=== PATIENT | female | born 1955 | race Caucasian/White ===

== ENCOUNTER → 2016-05-13 | Outpatient (CLI) | payer BC ==
--- NOTE | 2016-05-13 09:45 | MM ---
Reason for exam: history of breast cancer, mastectomy. Last mammogram was performed 1 year ago. History: Patient is postmenopausal and has history of breast cancer at age 51. Family history of breast cancer in maternal aunt at age 77, breast cancer in maternal cousin at age 35, and breast cancer in maternal cousin at age 42. Malignant mastectomy of the right breast, November 18, 2006. Malignant US right core biopsy of the right breast, November 07, 2006. Chemotherapy, 2006. Radiation therapy, 2006. Took tamoxifen for 5 years beginning at age 52. Physical Findings: Nurse did not find any significant physical abnormalities on exam. MG Diagnostic Mammo LT w CAD CC and MLO view(s) were taken of the left breast. Prior study comparison: May 07, 2015, left breast MG 3d diag mammo w/cad LT. April 23, 2014, left breast MG diagnostic mammo LT w CAD. Finding: There are stable, fine, regional calcifications in the left breast. No significant changes in finding since May 07, 2015 and April 23, 2014. These results were verbally communicated with the patient and result sheet given to the patient on 05/13/16. ASSESSMENT: Benign, BI-RAD 2 RECOMMENDATION: Routine screening mammogram of the left breast in 1 year.
== END | disposition home or self-care (01) ==
LOC: RADMAMWWP 08:47
PROVIDERS: ATTEND Family Medicine
DX: C50.919 Malignant neoplasm of unspecified site of unspecified female breast (principal)

== ENCOUNTER → 2016-09-21 | Outpatient (CLI) | payer BC ==
--- NOTE | 2016-09-21 11:16 | BD ---
EXAMINATION TYPE: MG DEXA axial skeleton. DATE OF EXAM: 09/21/2016 COMPARISON: NONE CLINICAL HISTORY: 61-year-old female special screening for osteoporosis Height: 60 Weight: 166.2 FRAX RISK QUESTIONS: Alcohol (3 or more units per day): no Family History (Parent hip fracture): no Glucocorticoids (More than 3mos): no (Ex: prednisone, prednisolone, methylprednisolone, dexamethasone, and hydrocortisone). History of Fracture in Adulthood: no Secondary Osteoporosis: 1. Type 1 Diabetes: no 2. Hyperthyroidism: no 3. Menopause before 45: no 4. Malnutrition: no 5. Chronic liver disease: no Rheumatoid Arthritis: no Current Tobacco Use: no RISK FACTORS HISTORY OF: Hip Fracture (Right/Left): no Spine Fracture: no History of Wrist Fracture: no Surgery to Spine/Hip(right/left)/Wrist (right/left): no Family History of Osteoporosis: no Active: yes Diet low in dairy products/other sources of calcium: no Postmenopausal woman: age 51/ chemo induced Lost more than 2 inches in height since high school: no Frequent falls: no Poor Health: no Hyperparathyroidism: no Adrenal Insufficiency: no MEDICATIONS: blood pressure med and cholesterol med Additional History: breast cancer at age 51 EXAM MEASUREMENTS: Bone mineral densitometry was performed using the incred[employer] System. Bone mineral density as measured about the Lumbar spine is: ----- L1-L4(G/cm2): 1.178 T Score Values are as follows: ----- L2: -0.3 ----- L3: 0.7 ----- L4: -1.1 ----- L1-L4: 0.0 Bone mineral density has: decreased -8.4 % since study of: 08.18.2007 Bone mineral density about the R hip (g/cm2): 0.966 Bone mineral density about the L hip (g/cm2): 0.966 T Score values are as follows: -----R Neck: -0.5 -----L Neck: -0.5 -----R Total: 0.0 -----L Total: 0.4 Bone mineral density has: decreased -11.9 % since study of: 08.18.2007 IMPRESSION: Normal bone mineral density as measured in the lumbar spine and both hips. Consider repeating this st udy in 5 years or sooner if there is some new clinical indication. NOTE: T-SCORE=SD OF THE YOUNG ADULT MEAN.
== END | disposition home or self-care (01) ==
LOC: RADBDWWP 10:11
PROVIDERS: ATTEND Family Medicine
DX: Z13.820 Encounter for screening for osteoporosis (principal)
CPT/HCPCS: 77080

== ENCOUNTER → 2017-05-30 | Outpatient (CLI) | payer BC ==
--- NOTE | 2017-05-31 11:41 | MM ---
Reason for exam: screening (asymptomatic). Last mammogram was performed 1 year and 1 month ago. History: Patient is postmenopausal and has history of breast cancer at age 51. Family history of breast cancer in maternal aunt at age 77, breast cancer in maternal cousin at age 35, and breast cancer in maternal cousin at age 42. Malignant mastectomy of the right breast, November 18, 2006. Malignant US right core biopsy of the right breast, November 07, 2006. Chemotherapy, 2006. Radiation therapy, 2006. Took tamoxifen for 5 years beginning at age 52. Physical Findings: A clinical breast exam by your physician is recommended on an annual basis and results should be correlated with mammographic findings. MG 3D Scr Rosemary Unilateral W/Cad Bilateral CC and MLO view(s) were taken. Prior study comparison: May 13, 2016, left breast MG diagnostic mammo LT w CAD. May 07, 2015, left breast MG 3d diag mammo w/cad LT. The breast tissue is heterogeneously dense. This may lower the sensitivity of mammography. Finding: There are suspicious nolvia-like calcifications in the 9 o'clock position of the left breast retroglandular, 6-7cm from the nipple on MLO view, questionable vascular. ASSESSMENT: Incomplete: need additional imaging evaluation, BI-RAD 0 RECOMMENDATION: Special view mammogram and ultrasound of the left breast. [facility] will attempt to contact patient to return for supplemental views and ultrasound.
== END | disposition home or self-care (01) ==
LOC: RADMAMWWP 09:54
PROVIDERS: ATTEND Family Medicine
DX: Z12.31 Encounter for screening mammogram for malignant neoplasm of breast (principal)
CPT/HCPCS: 77067

== ENCOUNTER → 2017-06-01 | Outpatient (CLI) | payer BC ==
--- NOTE | 2017-06-01 10:57 | MM ---
Reason for exam: additional evaluation requested from abnormal screening. Last mammogram was performed less than 1 month ago. History: Patient is postmenopausal and has history of breast cancer at age 51. Family history of breast cancer in maternal aunt at age 77, breast cancer in maternal cousin at age 35, and breast cancer in maternal cousin at age 42. Malignant mastectomy of the right breast, November 18, 2006. Malignant US right core biopsy of the right breast, November 07, 2006. Chemotherapy, 2006. Radiation therapy, 2006. Took tamoxifen for 5 years beginning at age 52. Physical Findings: Nurse did not find any significant physical abnormalities on exam. MG Work Up Mamm w CAD LT CC with magnification, ML with magnification, and ML view(s) were taken of the left breast. Prior study comparison: May 30, 2017, bilateral MG 3d scr bernadette unilateral w/cad. May 13, 2016, left breast MG diagnostic mammo LT w CAD. Finding: There are faint, fine, segmental calcifications in the outer quadrant, posterior position of the left breast 4 cm from the nipple on ML view. New finding since May 30, 2017 and May 13, 2016. These results were verbally communicated with the patient and result sheet given to the patient on 06/01/17. ASSESSMENT: Probably benign, BI-RAD 3 RECOMMENDATION: Follow-up diagnostic mammogram of the left breast in 6 months. (with CC, MLO and Mag views)
--- NOTE | 2017-06-01 10:59 | USB ---
Reason for exam: additional evaluation requested from abnormal screening. History: Patient is postmenopausal and has history of breast cancer at age 51. Family history of breast cancer in maternal aunt at age 77, breast cancer in maternal cousin at age 35, and breast cancer in maternal cousin at age 42. Malignant mastectomy of the right breast, November 18, 2006. Malignant US right core biopsy of the right breast, November 07, 2006. Chemotherapy, 2006. Radiation therapy, 2006. Took tamoxifen for 5 years beginning at age 52. US Breast Workup Limited LT Left breast ultrasound demonstrates no cystic or solid lesion seen. These results were verbally communicated with the patient and result sheet given to the patient on 06/01/17. ASSESSMENT: Negative, BI-RAD 1 RECOMMENDATION: Follow-up diagnostic mammogram of the left breast in 6 months. Manage patient on a clinical basis.
== END | disposition home or self-care (01) ==
LOC: RADMAMWWP 09:22
PROVIDERS: ATTEND Family Medicine
DX: R92.8 Other abnormal and inconclusive findings on diagnostic imaging of breast (principal)
CPT/HCPCS: 77065

== ENCOUNTER → 2018-01-03 | Outpatient (CLI) | payer BC ==
--- NOTE | 2018-01-03 11:06 | MM ---
Reason for exam: follow-up at short interval from prior study. Last mammogram was performed 7 months ago. History: Patient is postmenopausal and has history of breast cancer at age 51. Family history of breast cancer in maternal aunt at age 77, breast cancer in maternal cousin at age 35, breast cancer in sister at age 70, and breast cancer in maternal cousin at age 42. Malignant mastectomy of the right breast, November 18, 2006. Malignant US right core biopsy of the right breast, November 07, 2006. Chemotherapy, 2006. Radiation therapy, 2006. Took tamoxifen for 5 years beginning at age 52. Physical Findings: Nurse did not find any significant physical abnormalities on exam. MG 3D Diag Mammo W/Cad LT CC and MLO view(s) were taken of the left breast. Prior study comparison: June 01, 2017, left breast MG work up mamm w CAD LT. May 30, 2017, bilateral MG 3d scr bernadette unilateral w/cad. The breast tissue is heterogeneously dense. This may lower the sensitivity of mammography. Finding: There are typically benign vascular, dystrophic, round calcifications in the left breast. There is no discrete abnormality. These results were verbally communicated with the patient and result sheet given to the patient on 01/03/18. ASSESSMENT: Benign, BI-RAD 2 RECOMMENDATION: Follow-up diagnostic mammogram of the left breast in 1 year.
== END | disposition home or self-care (01) ==
LOC: RADMAMWWP 09:58
PROVIDERS: ATTEND Family Medicine
DX: R92.8 Other abnormal and inconclusive findings on diagnostic imaging of breast (principal)
CPT/HCPCS: 77061; 77065

== ENCOUNTER → 2018-03-15 | Outpatient (CLI) | payer BC ==
--- NOTE | 2018-03-15 15:28 | NM ---
EXAMINATION TYPE: NM bone scan whole body DATE OF EXAM: 03/15/2018 COMPARISON: CT chest, abdomen, and pelvis of the same date. HISTORY: Remote history of breast cancer. Abnormal finding in MRI of the knee Delayed whole-body scanning was performed following the injection of 23.7 mCi Tc 99m MDP. Images acq uired 3 hours post injection. FINDINGS: Numerous abnormal foci of radiotracer uptake are seen within the axial and appendicular skeleton. The most avid area of radiotracer uptake is seen within the right knee and left shoulder as well as the left calvarium. Other abnormal foci of radiotracer uptake are seen within the right proximal femur, l eft femoral head, bilateral sacroiliac joints (left greater than right), approximately the eighth ant erior left rib and seventh anterior right., Approximately the sixth posterior right rib, L2, T8, C2 a nd bilateral anterior iliac bones. However when correlated with the CT on the mild sclerosis is seen of the humeral heads and few areas of lucency within the pelvis. Therefore findings are cortical for either Paget's disease or multifocal metastasis. IMPRESSION: Abnormal multifocal osseous uptake. Considerations are for Paget's disease versus multifocal metastas is. CT brain could assess the calvarial finding, otherwise bone biopsy could be performed.
--- NOTE | 2018-03-16 08:07 | CT ---
EXAMINATION TYPE: CT ChestAbdPelvis w con DATE OF EXAM: 03/15/2018 COMPARISON: NONE HISTORY: New found bone mets. Metastatic disease, history of breast CA. CT DLP: 1388 mGycm. Automated Exposure Control for Dose Reduction was Utilized. CONTRAST: CT scan of the thorax, abdomen and pelvis is performed with IV Contrast, patient injected with 100 mL of Isovue 300. FINDINGS: LUNGS: There is a left 1.3 cm solid pulmonary nodule in the upper lobe on series 4 image 15. There ar e 5 groundglass sub-4 mm pulmonary nodules within the right upper lobe near the interlobar fissure on series 4 image 26 that are vaguely seen there is a medial right lower lobe 7 mm solid pulmonary nodu le. Along the left hemidiaphragm there is a 6 mm solid pulmonary nodule. No focal consolidation, pleu ral effusion or pneumothorax. MEDIASTINUM: Mediastinal adenopathy is seen within the prevascular space with lymph node measuring 1. 1 cm in short axis, within the left perihilar region measuring 1.4 cm in short axis, and within the l eft supraclavicular region there is a prominent lymph node measuring 6 mm in short axis. Right mastec zackary is performed and only shotty nonenlarged left axillary lymph nodes are seen. No internal mammary adenopathy is appreciated. LIVER/GB: Hepatic parenchyma is diffusely hypoattenuated in comparison to that of the spleen, most co mmonly seen in hepatic steatosis. This finding limits evaluation for hepatic masses. No gross evidenc e of hepatic mass is seen. No intrahepatic biliary ductal dilatation. Gallbladder is surgically absen t. PANCREAS: No significant abnormality is seen. SPLEEN: No significant abnormality is seen. No splenomegaly. ADRENALS: No nodules or thickening. KIDNEYS: Kidneys enhance symmetrically without hydronephrosis or focal renal lesion appreciated. BOWEL: There is long segment bowel wall thickening of the sigmoid colon without inflammatory change. This could relate to sequela of chronic colitis, less likely long segment neoplasm, or colonic spasm. Terminal ileum is decompressed. Appendix is also decompressed and within normal limits of size. GENITAL ORGANS: Uterus is diffusely heterogenous suggestive of multiple hypoattenuated uterine leiomy omas predominantly within the fundus as well as motor uterine segment calcified degenerative uterine leiomyomas. LYMPH NODES: No greater than 1cm abdominal or pelvic lymph nodes are appreciated. OSSEOUS STRUCTURES: There is sclerosis of the humeral heads, left greater than right. Subtle areas of lucency are seen within the thoracic spine such as on series 4 image 13 that could relate to osseous demineralization or early lytic lesions. There are few punctate bone islands within the femoral head s no discrete osseous lesion is seen within the left femoral head or proximal right femur to correlat e with the bone scan. There are subtle heterogenous bone marrow although no focal lesion is seen with in the pelvis. OTHER: Abdominal aorta is of normal course and caliber with moderate to severe atherosclerosis of the infrarenal abdominal aorta. IMPRESSION: 1. Left upper lobe pulmonary nodule and multiple subcentimeter right lower lobe pulmonary nodules as well as mediastinal adenopathy. Findings could represent metastatic disease or primary pulmonary neop lasm given this patient's discussed remote history of treated breast cancer. 2. Osseous findings are not definitively petroleum products sales representative of metastasis given CT characteristics. When correlated with the bone scan findings may represent multifocal metastasis or possible Paget's diseas e. 3. Sigmoid long segment bowel wall thickening that may be sequela of chronic colitis, colonic spasm o r less likely colonic neoplasm. Correlate with any recent colonoscopy. Given the various findings as described above PET/CT could assess all findings including any avid sigmoid colonic uptake.
== END | disposition home or self-care (01) ==
LOC: RADNMMAIN 09:37
PROVIDERS: ATTEND Internal Medicine Hematology & Oncology
DX: R93.7 Abnormal findings on diagnostic imaging of other parts of musculoskeletal system (principal); R91.8 Other nonspecific abnormal finding of lung field; R93.3 Abnormal findings on diagnostic imaging of other parts of digestive tract; Z88.2 Allergy status to sulfonamides; Z88.1 Allergy status to other antibiotic agents
CPT/HCPCS: 71260; 74177; 36415; 78306; A9503; Q9967

== ENCOUNTER → 2018-10-06 | Outpatient (CLI) | payer BC ==
--- NOTE | 2018-10-06 13:37 | CT ---
EXAMINATION TYPE: CT ChestAbdPelvis w con DATE OF EXAM: 10/06/2018 COMPARISON: CT chest abdomen and pelvis March 15, 2018 HISTORY: Breast cancer follow up. History of right-sided mastectomy with chemotherapy and radiation t reatment into this year. CT DLP: 807.6 mGycm. Automated Exposure Control for Dose Reduction was Utilized. CONTRAST: CT scan of the thorax, abdomen and pelvis is performed with IV Contrast, patient injected with 100 mL of Isovue 300. FINDINGS: LUNGS: The left upper lobe nodule measures 7 x 5 mm diminished in size from prior study. Small ground glass nodules in the right lung fissure mid lung axial image 28 are less prominent on current study, tiny groundglass nodule noted axial image 28 less prominent from prior. Left basilar nodule near the diaphragm less well seen on current study. No new nodules or masses. No pleural effusion or pneumotho rax. MEDIASTINUM: There is improved thoracic adenopathy. Prevascular lymph node measures 8 x 8 mm current study axial image 18 improved from prior study. Improved left hilar adenopathy is noted. No new grea ter than 1 cm thoracic lymph nodes are seen. No cardiomegaly or pericardial effusion is seen. Mild-to -moderate coronary artery calcification is noted marker of underlying coronary artery disease. Ascend ing aorta is ectatic up to 3.8 cm image 22 and not significantly changed from prior. OTHER: Right breast is surgically absent similar to prior. LIVER/GB: Cholecystectomy clips are redemonstrated. Liver remains low dense consistent with fatty inf iltration. PANCREAS: No significant abnormality is seen. SPLEEN: There is 9 mm rim calcified splenic artery aneurysm axial image 56 unchanged from prior. ADRENALS: No significant abnormality is seen. KIDNEYS: No significant abnormality is seen. BOWEL: Oral contrast reaches right colon. No suspicious bowel dilatation GENITAL ORGANS: Anteverted uterus. Calcified right inferior fibroid axial image 97 redemonstrated LYMPH NODES: No greater than 1cm abdominal or pelvic lymph nodes are appreciated. OSSEOUS STRUCTURES: Osseous metastatic disease is felt present as there is no rim lucent right superi or acetabular lesion axial image 61, there is vague sclerotic lesion right proximal femur near inferi or intertrochanteric level coronal image 57. There is no destructive lytic lesion left pubic symphysi s with some adjacent sclerosis. There is vague lytic and sclerotic lesion left iliac bone extending t o superior acetabulum coronal image 60 there is no sclerotic lesion left T12 pedicle axial image 47 a nd sclerotic lesion anterior T7 vertebra sagittal image 65 OTHER: No significant additional abnormality is seen. IMPRESSION: Overall mixed response, Interval improvement in left upper lobe nodule and thoracic adeno mita but interval confirmation and progression of osseous metastatic disease.
== END | disposition home or self-care (01) ==
LOC: RADCTMAIN 08:45
PROVIDERS: ATTEND Internal Medicine Hematology & Oncology
DX: C79.51 Secondary malignant neoplasm of bone (principal); C50.919 Malignant neoplasm of unspecified site of unspecified female breast; R91.1 Solitary pulmonary nodule; R59.9 Enlarged lymph nodes, unspecified
CPT/HCPCS: 82565; 84520; 71260; 74177; 36415; Q9967

== ENCOUNTER → 2019-01-02 | Outpatient (CLI) | payer BC ==
[2019-01-02 10:50] LABS: African American GFR (CKD) >90 (>60 ml/min/1.73 sqM); Blood Urea Nitrogen 16 mg/dL (7-17)
--- NOTE | 2019-01-02 15:31 | CT ---
EXAMINATION TYPE: CT ChestAbdPelvis w con DATE OF EXAM: 01/02/2019 COMPARISON: 10/06/2018 and 03/15/2018 HISTORY: 63-year-old female Follow up breast CA TECHNIQUE: Contiguous axial scanning of the chest, abdomen, and pelvis performed with IV Contrast, pa tient injected with 100 mL of Isovue 300. Delayed images through the kidneys were obtained. Coronal/s agittal reconstructions performed. CT DLP: 703.5 mGycm Automated exposure control for dose reduction was used. FINDINGS: CHEST: Heart normal size without pericardial effusion. Scattered coronary vessel calcifications are present. Ectatic ascending aorta and 3.8 cm with conventional vessel branching anatomy. No thoracic lymphadenopathy by CT size criteria. Status post right mastectomy. 7 mm left upper lobe pulmonary nodule is stable from 10/06/2018 and smaller from 03/15/2018. 4 mm nodularity medial right lower lobe on axial image 37 and 38 unchanged from 10/06/2018, but again, smaller from 03/15/2013. No new pulmonary nodules. No consolidation or pleural effusion. ABDOMEN: Liver mildly enlarged at 18.1 cm with low-attenuation suggesting fatty infiltration. No focal liver l esion or biliary ductal dilatation. Portal venous system is patent. Cholecystectomy clips. Adrenal glands, kidneys with bilateral extrarenal pelves, and pancreas appear within normal limits. Spleen borderline enlarged at 13.4 cm. No dilated small bowel, free fluid, or free air. Moderate atherosclerotic calcifications infrarenal abdominal aorta without aneurysm. No mesenteric or retroperitoneal lymphadenopathy. Moderate stool burden. No pericolonic inflammatory change. Normal appendix. Pelvis: Bladder is urine distended. Anteverted fibroid uterus with a calcified 2.5 cm fibroid along the anter ior lower uterine segment. Both ovaries are visualized. No abnormal fluid collection in the pelvis or pelvic lymphadenopathy. Bones: Multifocal mixed sclerotic and lucent lesions throughout skeleton. Facet arthropathy lower lumbar spi ne with grade 1 anterolisthesis at L5-S1. IMPRESSION: 1. STATUS POST RIGHT MASTECTOMY. 2. 7 MM LEFT UPPER LOBE PULMONARY NODULE AND 4 MM AND SMALLER MEDIAL RIGHT LOWER LOBE PULMONARY NODUL ARITY STABLE FROM 10/06/2018 BUT NOTED TO BE SMALLER FROM 03/15/2018. 3. DIFFUSE MIXED SCLEROTIC AND LUCENT OSSEOUS METASTASES REDEMONSTRATED. 4. NO NEW METASTATIC DISEASE IDENTIFIED.
--- NOTE | 2019-01-03 04:22 | NM ---
EXAMINATION TYPE: NM bone scan whole body DATE OF EXAM: 01/02/2019 COMPARISON: 03/15/[address] same day HISTORY: 63-year-old female C50.919, breast cancer. Technique: Delayed whole-body scanning was performed following the injection of 23 mCi Tc 99m MDP. I mages acquired 3 hours post injection. FINDINGS: Focal increased activity along the left calvarium, left humeral head, foci at the right shoulder, rig ht anterior fourth rib, left anterior sixth rib, left sacrum, patchy throughout the mid thoracic spin e, proximal femora, and right knee. Some focal activity along the medial compartment of the left knee likely on a degenerative basis. No new focal abnormal activity is identified. IMPRESSION: Generalized osseous metastatic disease, relatively similar distribution as prior. Note, intense focal activity at the right knee. Given right knee pain, consider radiographic correlation.
== END ==
LOC: RADNMMAIN 09:53
PROVIDERS: ATTEND Internal Medicine Hematology & Oncology
DX: C79.51 Secondary malignant neoplasm of bone (principal); C50.919 Malignant neoplasm of unspecified site of unspecified female breast; M25.561 Pain in right knee; Z90.11 Acquired absence of right breast and nipple; R91.1 Solitary pulmonary nodule
CPT/HCPCS: 82565; 84520; 71260; 74177; 36415; 78306; A9503; Q9967

== ENCOUNTER → 2019-01-17 | Outpatient (CLI) | payer BC ==
--- NOTE | 2019-01-17 09:21 | MM ---
Reason for exam: additional evaluation requested from prior study. Last mammogram was performed 1 year ago. History: Patient is postmenopausal, has history of breast cancer at age 51, and history of other cancer. Family history of breast cancer in maternal aunt at age 77, breast cancer in maternal cousin at age 35, breast cancer in sister at age 70, and breast cancer in maternal cousin at age 42. Malignant mastectomy of the right breast, November 18, 2006. Malignant US right core biopsy of the right breast, November 07, 2006. Chemotherapy, 2006. Radiation therapy, 2006. Took tamoxifen for 5 years beginning at age 52. Physical Findings: Nurse did not find any significant physical abnormalities on exam. MG 3D Diag Mammo W/Cad LT CC and MLO view(s) were taken of the left breast. Prior study comparison: January 03, 2018, left breast MG 3d diag mammo w/cad LT. June 01, 2017, left breast MG work up mamm w CAD LT. The breast tissue is heterogeneously dense. This may lower the sensitivity of mammography. No significant new findings when compared with previous films. These results were verbally communicated with the patient and result sheet given to the patient on 01/17/19. ASSESSMENT: Benign, BI-RAD 2 RECOMMENDATION: Follow-up diagnostic mammogram of the left breast in 1 year.
== END | disposition home or self-care (01) ==
LOC: RADMAMWWP 07:46
PROVIDERS: ATTEND Family Medicine
DX: R92.8 Other abnormal and inconclusive findings on diagnostic imaging of breast (principal)
CPT/HCPCS: 77061; 77065

== ENCOUNTER → 2019-03-19 | Outpatient (CLI) | payer BC ==
[2019-03-19 08:58] LABS: Basophils % (A) 1 %; Eosinophils # (A) 0.1 k/uL (0-0.7); Eosinophils % (A) 3 %; HCT 42.3 % (34.0-46.0); HGB 14.5 gm/dL (11.4-16.0); Lymphocytes # (A) 0.8 k/uL (1.0-4.8); Lymphocytes % (A) 27 %; MCH 34.7 pg (25.0-35.0); MCHC 34.2 g/dL (31.0-37.0); MCV 101.5 fL (80.0-100.0); Macrocytosis Slight; Mean Platelet Volume 7.2; Monocytes # (A) 0.1 k/uL (0-1.0); Monocytes % (A) 2 %; Neutrophils % (A) 65 %; Platelet Count 267 k/uL (150-450); Poikilocytosis Slight; RBC 4.17 m/uL (3.80-5.40); RDW 13.9 % (11.5-15.5); WBC 3.1 k/uL (3.8-10.6)
[2019-03-19 17:00] LABS: African American GFR (CKD) 78.9 (60.0-200.0); Albumin 4.8 g/dL (3.80-4.90); Albumin/Globulin Ratio 2.4 (1.60-3.17); Anion Gap 9.8 mmol/L (4.00-12.00); BUN/Creat Ratio 16.67 Ratio (12.00-20.00); Calcium 9.6 mg/dL (8.7-10.3); Carbon Dioxide 23.2 mmol/L (21.6-31.8); Chol/HDL Ratio 2.76; Potassium 4.4 mmol/L (3.5-5.5); Total Bilirubin 0.7 mg/dL (0.2-1.2); Total Protein 6.8 g/dL (6.2-8.2)
[2019-03-19 19:21] LABS: Hemoglobin A1C 5.7 % (4.0-6.0)
== END ==
LOC: LABWHC1 08:20
PROVIDERS: ATTEND Family Medicine
DX: E11.9 Type 2 diabetes mellitus without complications (principal)
CPT/HCPCS: 36415; 80053; 80061; 83036; 84443; 85025

== ENCOUNTER → 2019-08-07 | Outpatient (CLI) | payer BC ==
--- NOTE | 2019-08-07 14:03 | CT ---
EXAMINATION TYPE: CT ChestAbdPelvis w con DATE OF EXAM: 08/07/2019 COMPARISON: 01/02/2019 HISTORY: Malignant neoplasm of breast CT DLP: 917.10 mGycm Automated exposure control for dose reduction was used. CONTRAST: CT scan of the chest, abdomen and pelvis is performed with Oral Contrast and with IV Contrast, patien t injected with 100 ml mL of Isovue 300. FINDINGS: LUNGS: Nodules: 2 mm left apical nodule stable from prior exam, additional left upper lobe nodule previously measured 7 mm now measures 11 mm increased in size. 4 mm nodule superior segment right lower lobe image 18 and stable from prior exam. 4 mm nodule seen along the medial margin of the right lower lobe image 33 measures 7 mm and previousl y measured 4 mm. There is a new large right lower lobe pulmonary nodule or mass with lobulation measuring 2.2 x 2.5 cm . No pleural effusion or pneumothorax. No consolidative pneumonia. MEDIASTINUM: There are no greater than 1 cm hilar or mediastinal lymph nodes. No pericardial effusi on is seen. Coronary artery calcifications noted. OTHER: Post right mastectomy noted. LIVER/GB: Low-attenuation liver suggestive of fatty infiltration. No intrahepatic mass. Postcholecyst ectomy changes noted. PANCREAS: No significant abnormality is seen. SPLEEN: No significant abnormality is seen. ADRENALS: No significant abnormality is seen. KIDNEYS: No significant abnormality is seen. Extrarenal pelvis bilaterally suspected BOWEL: No significant abnormality is seen. LYMPH NODES: No greater than 1 cm abdominal or pelvic lymph nodes are appreciated. OSSEOUS STRUCTURES: There is widespread sclerotic changes throughout the visualized osseous structure s compatible with bony metastases. Grade 1 anterolisthesis L4 on L5 is stable with facet arthropathy. The intensity of the sclerosis appears to be increased throughout numerous segments of the thoracic spine. Sternal changes are stable. Sacral involvement and pelvic involvement again noted lytic lesion involving the pubic ramus on the left does break the cortex stable from prior exam. Involvement of t he femurs also noted. OTHER: Atherosclerotic changes of the aorta. No evidence of aneurysm. Calcification of the uterus lik vini related to uterine fibroid unchanged from prior exam. Additional lobulation of the uterus represe nting most likely related to additional areas of fibroid change. IMPRESSION: 1. New large 2.2 x 2.5 cm right lower lobe pulmonary mass suspicious for metastasis 2. There is interval progression in size of multiple pulmonary nodules as discussed above 3. Diffuse bony metastasis.
--- NOTE | 2019-08-07 15:08 | NM ---
EXAMINATION TYPE: NM bone scan whole body DATE OF EXAM: 08/07/2019 COMPARISON: 01/02/2019 HISTORY: Breast cancer Delayed whole-body scanning was performed following the injection of 23.4 mCi Tc 99m MDP. Images acq uired 3 hours post injection. FINDINGS: Focal increased activity along the left calvarium, left humeral head, foci at the right shoulder, rig ht anterior fourth rib, left anterior sixth rib, left sacrum, patchy throughout the mid thoracic spin e, proximal femora, and right knee. Some focal activity along the medial compartment of the left knee likely on a degenerative basis. No new focal abnormal activity is identified. There is a focal area of uptake in the proximal diaphysis of the left humerus definitively seen on prior exam. The larger area centered near the head of the hu merus appears to be stable. IMPRESSION: Generalized osseous metastatic disease, relatively similar distribution as prior. There is a tiny are a of new uptake involving the proximal diaphysis of the left humerus.
== END | disposition home or self-care (01) ==
LOC: RADNMMAIN 10:50
PROVIDERS: ATTEND Internal Medicine Hematology & Oncology
DX: R91.8 Other nonspecific abnormal finding of lung field (principal); C79.51 Secondary malignant neoplasm of bone; C50.919 Malignant neoplasm of unspecified site of unspecified female breast; Z88.2 Allergy status to sulfonamides; Z91.09 Other allergy status, other than to drugs and biological substances
CPT/HCPCS: 71260; 74177; 78306; A9503; Q9967

== ENCOUNTER → 2019-12-06 | Outpatient (CLI) | payer BC ==
[2019-12-06 15:58] LABS: African American GFR (CKD) 90.3 (60.0-200.0); Albumin 4.3 g/dL (3.80-4.90); Albumin/Globulin Ratio 1.79 (1.60-3.17); Anion Gap 10.5 mmol/L (4.00-12.00); BUN/Creat Ratio 11.25 Ratio (12.00-20.00); Calcium 9.6 mg/dL (8.7-10.3); Carbon Dioxide 27.5 mmol/L (21.6-31.8); Globulin 2.4 g/dL (1.6-3.3); Non-African American GFR(CKD) 77.9 (60.0-200.0); Potassium 4.3 mmol/L (3.5-5.5); Total Bilirubin 0.4 mg/dL (0.2-1.2); Total Protein 6.7 g/dL (6.2-8.2)
== END | disposition home or self-care (01) ==
LOC: LABWHC1 08:42
PROVIDERS: ATTEND Internal Medicine Hematology & Oncology
DX: I10 Essential (primary) hypertension (principal); G89.3 Neoplasm related pain (acute) (chronic); C50.919 Malignant neoplasm of unspecified site of unspecified female breast; E78.5 Hyperlipidemia, unspecified
CPT/HCPCS: 36415; 80053

== ENCOUNTER → 2020-02-19 | Outpatient (CLI) | payer BC ==
[2020-02-19 10:37] LABS: African American GFR (CKD) >90 (>60 ml/min/1.73 sqM); Blood Urea Nitrogen 16 mg/dL (7-17); Non-African American GFR(CKD) 81 (>60 ml/min/1.73 sqM)
--- NOTE | 2020-02-19 12:36 | CT ---
EXAMINATION TYPE: CT ChestAbdPelvis w con DATE OF EXAM: 02/19/2020 COMPARISON: 08/07/2019 HISTORY: Breast Cancer CT DLP: 686.9 mGycm CONTRAST: CT scan of the chest, abdomen and pelvis is performed with Oral Contrast and with IV Contrast, patien t injected with 100 ml mL of Isovue 300. CT Chest: LUNGS: Enlarging left upper lobe pulmonary nodule measures 2.1 cm versus 11 mm previously. Marked enl argement of a right lower lobe pulmonary nodule which currently measures 4.3 cm versus 2.2 cm previou sly. There are several subcentimeter adjacent pulmonary nodules noted extending into the posterior co stophrenic sulcus medially. There is also a right infrahilar nodule measuring 8.4 mm versus 6 mm prev iously. MEDIASTINUM: Thoracic aorta is of normal caliber. The heart is not enlarged. There is new AP windo w adenopathy measuring 1.3 cm. HILAR STRUCTURES: New right hilar adenopathy measuring 1.7 cm. Left hilar adenopathy measuring 1.3 cm . OTHER: No significant abnormality. CONTRAST CT ABDOMEN AND PELVIS FINDINGS: LIVER/GB: Cholecystectomy clips are in place. No space occupying hepatic lesion. Biliary tree is of n ormal caliber. PANCREAS: No inflammation. No distinct mass. SPLEEN: No splenic enlargement. No lesion seen. ADRENALS: No nodule. No thickening. KIDNEYS/BLADDER: No hydronephrosis. No nephrolithiasis. No disctinct renal mass. BOWEL: Normal appendix. Normal bowel caliber. No inflammation. GENITAL ORGANS: Calcified leiomyomatous change of the uterus. No ovarian masses seen. LYMPH NODES: No greater than 1cm abdominal or pelvic lymph nodes are appreciated. AORTA: No significant abnormality. OSSEOUS STRUCTURES: Widespread sclerotic metastatic disease throughout the axial skeleton as visualiz ed. OTHER: No significant additional abnormality is seen. IMPRESSION: 1. Enlarging pulmonary nodules and masses. 2. Interval development of AP window adenopathy and bilateral hilar adenopathy. 3. Bony metastases persist essentially unchanged.
--- NOTE | 2020-02-19 14:58 | NM ---
EXAMINATION TYPE: NM bone scan whole body DATE OF EXAM: 02/19/2020 COMPARISON: 08/07/2019 HISTORY: C50.919 Breast Cancer Delayed whole-body scanning was performed following the injection of 25.1 mCi Tc 99m MDP. Images acq uired 4 hours post injection. FINDINGS: Progressive lesions: There is progressive uptake noted about the bony calvarium particularly on the l eft. Progressive uptake noted about the bilateral proximal humeri right greater than left. There is a lso increased uptake about the left mid humerus. Increased uptake right intertrochanteric region and right hemisacrum. Mildly increased uptake left hemisacrum. Progressive uptake T8. New small focal les ion proximal right humeral diaphysis. New lesions: New lesions are seen involving the approximate L4 segment as well as lower thoracic and L1 segments. New lesion anterior left rib #3. Stable lesions: Distal right femoral lesion is stable. Scattered bilateral rib lesions are also stabl e. Improved lesions: None IMPRESSION: Progressive metastatic disease as noted above.
== END | disposition home or self-care (01) ==
LOC: RADNMMAIN 09:53
PROVIDERS: ATTEND Internal Medicine Hematology & Oncology
DX: R91.8 Other nonspecific abnormal finding of lung field (principal); R59.0 Localized enlarged lymph nodes; C50.919 Malignant neoplasm of unspecified site of unspecified female breast; Z88.1 Allergy status to other antibiotic agents; Z88.2 Allergy status to sulfonamides
CPT/HCPCS: 82565; 84520; 71260; 74177; 36415; 78306; A9503; Q9967

== ENCOUNTER → 2020-03-05 | Outpatient (CLI) | payer BC ==
--- NOTE | 2020-03-05 20:04 | MR ---
EXAMINATION TYPE: MR brain wo/w con DATE OF EXAM: 03/05/2020 COMPARISON: None HISTORY: Breast cancer, altered mental status TECHNIQUE: Multiplanar, multisequence images of the brain and brainstem is performed without and with IV contras t, utilizing 6 mL intravenous Gadavist . FINDINGS: Diffusion weighted images demonstrate no evidence of a recent infarct or other diffusion ab normality. There is a large mass present over the left frontal region involving the superior margin of the orbit, left frontal calvarium which is isointense on inversion recovery T2-weighted sequences, T1-weighted sequences, there is heterogeneous enhancement following contrast administration, thicken ing of the dura and abnormal soft tissue involving the scalp also noted in the left frontal region. T here is mass effect on the left frontal lobe, frontal horn of the left lateral ventricle greater than right, subfalcine herniation without hydrocephalus. Mass measures approximately 6.6 x 3.5 x 4 cm. Th ere is scoliosis within the left frontal lobe. Abnormal signal also present towards the midline and c onvexity likely also centered at the calvarium, the mass shows an inner table component as well as so ft tissue within the scalp overall measuring approximately 3.6 in transverse dimension by 2.7 cm x 2. 3 cm. Calvarium shows diffuse low signal possibly due to osteoblastic metastasis. Posterior calvarium also shows abnormal soft tissue within the scalp and extending along the inner table, focus measures approximately 3 cm in transverse dimension but does not show similar enhancement. There is dural enh ancement present. No evident hemorrhage. Partially empty sella is present. Cervical medullary junction is normal. Proba ble arachnoid cyst present in the posterior fossa. IMPRESSION: Metastatic disease, there is mass effect with herniation, gliosis as described. A Red level critical message alert has been initiated for Zack Armas MD via the [employer] Critical Results System on 03/05/2020 8:01 PM. This message alert has been sent to Zack Armas MD via the preferences provided by the clinician for the receipt of Radiology Critical Findings. Message ID [id number].
== END | disposition home or self-care (01) ==
LOC: RADMRIMAIN 17:48
PROVIDERS: ATTEND Internal Medicine Hematology & Oncology
DX: G93.89 Other specified disorders of brain (principal); C79.31 Secondary malignant neoplasm of brain; C50.919 Malignant neoplasm of unspecified site of unspecified female breast
CPT/HCPCS: 70553; A9585

== ENCOUNTER 2020-03-13 12:17 | Day surgery (SDC) | payer BC ==
[2020-03-12 15:37] VITALS: BMI 29.2
[~2020-03-13 12:17] MED LIST: ACETAMINOPHEN TAB 500 MG TAB PO PRN; HEPARIN SODIUM,PORCINE 5,000 UNIT/ML 1 ML VIAL SQ PRN; Pre Op ABX Message 1 EACH MISC MISCELLANE ONE
[2020-03-13] MEDS ORDERED: LACTATED RINGERS 1,000 ML IV ONE (12:40)
[2020-03-13 12:53] LABS: Glucose,Whole Blood 106 mg/dL (75-99)
[2020-03-13] MEDS ORDERED: ONDANSETRON 4 MG/2 ML VIAL IVP ONE (12:59)
[2020-03-13] MEDS ORDERED: DEXAMETHASONE SOD PHOSPHATE 4 MG/ML 1 ML VIAL IVP ONE (12:59)
[2020-03-13] MEDS ORDERED: ceFAZolin 1,000 MG VIAL ONE (14:33)
[2020-03-13] MEDS ORDERED: ePHEDrine SULFATE/0.9% NACL/PF 50 MG/5 ML SYRINGE IV ONE (14:33)
[2020-03-13] MEDS ORDERED: fentaNYL (PF) 50 MCG/ML 2 ML AMP ONE (14:33)
[2020-03-13] MEDS ORDERED: MIDAZOLAM 2 MG/2 ML VIAL ONE (14:33)
[2020-03-13] MEDS ORDERED: PROPOFOL 10 MG/ML 20 ML VIAL IV ONE (14:33)
[2020-03-13] MEDS ORDERED: LIDOCAINE 1% INJ 10MG/ML (20 ML MDV) ONE (14:33)
--- NOTE | 2020-03-13 14:40 | P.GSHP ---
History of Present Illness H&P Date: 03/13/20 Chief Complaint: metastatic breast cancer 64-year-old female here today for Port-A-Cath placement. Patient with diagnosis of metastatic breast cancer. Initial breast cancer diagnosis 2006. Currently with brain metastasis. Starting radiation therapy tomorrow. Past Medical History Past Medical History: Asthma, Diabetes Mellitus, Hyperlipidemia, Hypertension, Memory Impairment, Osteoarthritis (OA) Additional Past Medical History / Comment(s): health hx updated with daughter- vandana, Breast cancer 2007 with chemo and radiation and cancer again in 2018 with mets to bone and now new diagnosis of brain tumor., has headpain, shoulder and knee pain., has brain swelling and is having memory impairment and cognitive issues. , lives with her sister - Mary., hx of radiation to shoulder and knee (2019). History of Any Multi-Drug Resistant Organisms: None Reported Past Surgical History: Back Surgery, Joint Replacement, Orthopedic Surgery Additional Past Surgical History / Comment(s): 03-11 lumbar fusion with laminectomy decompression, bilateral TKA, WILIAM with BSO, bilateral carpal tunnel release, Spinal cord stimulator(2011) Past Anesthesia/Blood Transfusion Reactions: No Reported Reaction Past Psychological History: No Psychological Hx Reported Smoking Status: Never smoker Past Alcohol Use History: None Reported Past Drug Use History: None Reported - Past Family History mother Family Medical History: Diabetes Mellitus Medications and Allergies Home Medications Medication Instructions Recorded Confirmed Type Ferrous Sulfate [Iron (65 MG 1 tab PO DAILY 09/08/16 03/12/20 History Elemental)] Metoprolol Tartrate [Lopressor] 50 mg PO BID 09/08/16 03/12/20 History Simvastatin [Zocor] 10 mg PO DAILY 09/08/16 03/12/20 History amLODIPine [Norvasc] 2.5 mg PO DAILY 09/08/16 03/12/20 History Aspirin [Adult Low Dose Aspirin EC] 81 mg PO DAILY 03/12/20 03/12/20 History Allergies Allergy/AdvReac Type Severity Reaction Status Date / Time hydromorphone Allergy Severe Swelling Verified 03/12/20 14:43 nitrofurantoin Allergy Severe Rash/Hives Verified 03/12/20 14:43 [From Macrobid] Sulfa (Sulfonamide Allergy Severe Rash/Hives Verified 03/12/20 14:43 Antibiotics) alpelisib [From Piqray] Allergy Unknown Swelling Verified 03/12/20 15:04 of Throat, Rash Surgical - Exam Vital Signs Temp Pulse Resp BP Pulse Ox 97.8 F 64 18 139/73 98 03/13/20 12:38 03/13/20 12:38 03/13/20 12:38 03/13/20 12:38 03/13/20 12:38 Physical exam: General: Well-developed, well-nourished HEENT: Normocephalic, sclerae nonicteric Abdomen: Nontender, nondistended Extremities: No edema Neuro: Alert and oriented Results - Labs Abnormal Lab Results - Last 24 Hours (Table) 03/13/20 Range/Units 12:51 POC Glucose (mg/dL) 106 H (75-99) mg/dL Assessment and Plan (1) Metastatic breast cancer Narrative/Plan: Will proceed with Port-A-Cath placement at this time. Risks of bleeding, infection, DVT, pneumothorax, catheter malfunction, anesthesia related complications were discussed with patient and sister. They understand and wish to proceed. Current Visit: Yes Status: Acute Code(s): C50.919 - MALIGNANT NEOPLASM OF UNSP SITE OF UNSPECIFIED FEMALE BREAST SNOMED Code(s): 603913668
[2020-03-13] MEDS ORDERED: LIDOCAINE 1% INJ 10MG/ML (20 ML MDV) SQ ONE (14:56)
--- NOTE | 2020-03-13 15:23 | FL ---
Fluoroscopy INDICATION: Pain FINDINGS: Fluoroscopy time: 12 seconds. Images obtained: 1. IMPRESSIONS: 1. Documentation of fluoroscopy.
[2020-03-13] MEDS ORDERED: NALOXONE 0.4 MG/ML 1 ML VIAL IV PRN (15:34)
[2020-03-13] MEDS ORDERED: HYDROcodone/APAP 5-325MG 1 EACH TAB PO PRN (15:34)
[2020-03-13 15:46] VITALS: TEMP 98
[2020-03-13 15:48] VITALS: RESP 16
--- NOTE | 2020-03-13 15:52 | P.OP ---
Date of Procedure: 03/13/20 Procedure(s) Performed: PREOPERATIVE DIAGNOSIS: Metastatic breast cancer POSTOPERATIVE DIAGNOSIS: Same PROCEDURE: Port-A-Cath placement with fluoroscopic and ultrasound guidance SURGEON: Darwin EBL: Minimal ANESTHESIA: Sedation COMPLICATIONS: None OPERATIVE PROCEDURE: Patient was brought and placed on the operative table in the supine position. The patient was sedated per anesthesia that time. The chest and neck were prepped and draped in usual sterile fashion. The ultrasound probe was used to identify the location of the right internal jugular vein. The skin was localized with lidocaine. The Seldinger needle was advanced into the IJ under ultrasound guidance. The wire was advanced through the needle under fluoroscopic guidance into the superior vena cava. A port pocket was created in the right infraclavicular location. The catheter was tunneled from the wire entrance site to the port pocket. The port was then connected to the catheter. The dilator introducer was threaded over the guidewire. The guidewire and dilator were then removed. The catheter was advanced through the introducer and introducer was then removed. The tip was seen to be in the right atrial junction via fluoroscopy. A picture of the radiograph showing the tip at the radial digital junction was taken. Port was flushed with both saline and a Hep- Lock solution. There was good flow both in and out of the port. The port was sutured in underlying tissues using 3-0 silk sutures. The subcutaneous tissues were reapproximated using 3-0 Vicryl sutures and the skin at both locations using 4-0 Monocryl sutures. Skin glue and sterile dressings then applied. DISPOSITION: Stable to recovery room
[2020-03-13 15:55] LABS: Glucose,Whole Blood 121 mg/dL (75-99)
--- NOTE | 2020-03-13 16:01 | XR ---
EXAMINATION TYPE: XR chest 1V confirm line [facility] DATE OF EXAM: 03/13/2020 COMPARISON: None INDICATION: Port-A-Cath insertion TECHNIQUE: Single frontal view of the chest is obtained. FINDINGS: The heart size is mildly prominent. The pulmonary vasculature is normal. Patchy increased opacity may be present. There is a nodular density within the left upper lung field measuring 1.6 cm. Port is been placed on the right with the tip within the proximal right atrium. No pneumothorax is ev ident. IMPRESSION: 1. Placement of a port on the right with the tip in the proximal right atrium. 2. Increased upper lung field lung markings. 3. Possible 1.6 cm nodule left upper lobe.
[2020-03-13 16:27] VITALS: BP 132/76; PULSE 66
== END 2020-03-13 16:38 | disposition home or self-care (01) ==
LOC: OR 12:17
PROVIDERS: ATTEND Surgery
DX: C50.919 Malignant neoplasm of unspecified site of unspecified female breast (principal); C79.31 Secondary malignant neoplasm of brain; R91.8 Other nonspecific abnormal finding of lung field; J45.909 Unspecified asthma, uncomplicated; E11.9 Type 2 diabetes mellitus without complications; E78.5 Hyperlipidemia, unspecified; I10 Essential (primary) hypertension; M19.90 Unspecified osteoarthritis, unspecified site; C79.51 Secondary malignant neoplasm of bone; Z92.21 Personal history of antineoplastic chemotherapy; Z92.3 Personal history of irradiation; Z98.890 Other specified postprocedural states; Z96.653 Presence of artificial knee joint, bilateral; Z98.1 Arthrodesis status; Z90.710 Acquired absence of both cervix and uterus; Z90.722 Acquired absence of ovaries, bilateral; Z90.79 Acquired absence of other genital organ(s); Z86.69 Personal history of other diseases of the nervous system and sense organs; Z96.82 Presence of neurostimulator; Z79.899 Other long term (current) drug therapy; Z79.82 Long term (current) use of aspirin; Z88.5 Allergy status to narcotic agent; Z88.1 Allergy status to other antibiotic agents; Z88.2 Allergy status to sulfonamides; Z83.3 Family history of diabetes mellitus
CPT/HCPCS: 36561; 77001; C1788; J2250; J1644; J1100; J2405; J0690; J1642; J2001; J3010; J2704

== ENCOUNTER → 2020-04-23 | Outpatient (CLI) | payer BC ==
--- NOTE | 2020-04-24 18:38 | MR ---
EXAMINATION TYPE: MR thoracic spine wo/w con DATE OF EXAM: 04/23/2020 COMPARISON: None HISTORY: Back pain, breast cancer CONTRAST: Performed utilizing 6.0 mL intravenous Gadavist gadolinium contrast. TECHNIQUE: Multiplanar, multiecho imaging on a 3.0 Alicia magnet is performed through the thoracic spi ne. Multilevel signal abnormalities present through the thoracic spine. There is a more focal area at T10 . This has minimal posterior wall displacement with anterior thecal sac contact. No AP spinal canal s tenosis is present. No cord contact is evident. A right paracentral disc bulge or endplate bulge may be present at the inferior endplate of T10. No suspicious focal disc herniations are evident. Additional posterior wall bulging is not identified . Spinal cord maintains normal signal through its visualized course. Vertebral body alignment is normal. Vertebral body heights are preserved. No compression of T10 or other vertebral levels is identified. Disc heights are preserved. Disc hydration levels are desiccated. No spinal canal stenosis is evident. IMPRESSIONS: 1. Diffuse metastatic disease throughout the thoracic spine. Marked signal abnormalities present at T 10 subtle posterior wall displacement inferiorly. No stenosis is present.
== END | disposition home or self-care (01) ==
LOC: RADMRIMAIN 09:59
PROVIDERS: ATTEND Internal Medicine Hematology & Oncology
DX: C50.919 Malignant neoplasm of unspecified site of unspecified female breast (principal); C76.51 Malignant neoplasm of right lower limb
CPT/HCPCS: 72157; A9585

== ENCOUNTER 2020-09-14 09:46 | Inpatient (IN) | payer MEDICAID ==
[2020-09-14] MEDS ORDERED: ONDANSETRON 4 MG/2 ML VIAL IVP PRN (09:53)
[2020-09-14] MEDS ORDERED: MORPHINE SULFATE 2 MG/ML SYRINGE IV PRN (09:53)
[2020-09-14] MEDS ORDERED: PHENobarbital SODIUM 130 MG/ML 1 ML VIAL IM PRN (09:56)
[2020-09-14] MEDS: MORPHINE SULFATE (100 MG/2 ML) 100 MG in SODIUM CHLORIDE 0.9% 100 ML IV SCH (13:53)
[2020-09-14] MEDS: SCOPOLAMINE 1.5MG/72HR PATCH TRANSDERM SCH (14:36)
--- NOTE | 2020-09-14 15:33 | P.HPIM ---
History of Present Illness H&P Date: 09/14/20 Chief Complaint: Agitated behavior History of presenting complaint: This is a 64-year-old patient, who is being admitted under GIP. History is updated with her daughter the bedside. Patient has a known history of breast cancer diagnosed in 2006. 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 Patient's had chemotherapy and right mastectomy. On the stable medical conditions included hypertension, hyperglycemia, hyperlipidemia. Patient did follow with oncologist Dr. Armas. Patient had been under hospice being cared by a family member/sister. Patient now sent in full GIP because of increasing confusion and hallucinations bizarre behavior. Last to 3 days patient has not been able to do much. Barely eating. His last 48 hours this far more confusion and agitation and aggression with the family. Trouble swallowing. On taking oral medications. He had been on morphine ER and IR for pain control and Keppra for seizure precautions. Patient did not sleep for the last 24 hours. The hospital but apart aggressive to his family. As patient be admitted for symptom management. Patient received morphine currently sedated. Patient is also had cognitive impairment. Review of systems: As above Unable to obtain from the patient Past medical history to include: Hypertension, hyperglycemia, hyperlipidemia, breast cancer diagnosed in 2006 with metastatic sister brain bone and lung Social history: Nonsmoker. Nonalcohol. Currently was living with her sister Mary was providing care Family history: Diabetes Physical examination: VITAL SIGNS: [In the electronic records GENERAL: [BMI 22.2, laying in bed, sedated. EYES: [Pupils equal. Conjunctiva kiersten]l. HEENT: [External appearance of nose and ears normal, oral cavity grossly normal] skeletal bony prominence NECK: [JVD unable to assess; masses not palpable]. HEART: [First and second heart sounds are normal; no edema]. LUNGS:[ Respiratory rate normal; clear to auscultation]. ABDOMEN: [Soft, nontender, liver spleen not palpable, no masses palpable]. PSYCH: [Unable to assess patient sedated l. NEUROLOGICAL: [Cranial nerves grossly intact; no facial asymmetry, power and sensation unable to assess. LYMPHATICS: [Unable to assess] Assessment and plan: -Acute agitated behaviors, from brain metastasis Morphine drip for symptom control -Metastatic breast cancer with metastatic to brain and bone and lungs -Pain control Morphine drip titrate to symptoms Patient admitted with GIP. Comfort care is set. Continue morphine drip. Comfortable. Care was discussed with daughter the bedside. Questions answered. Past Medical History Past Medical History: Asthma, Diabetes Mellitus, Hyperlipidemia, Hypertension, Memory Impairment, Osteoarthritis (OA) Additional Past Medical History / Comment(s): health hx updated with daughter- vandana, Breast cancer 2007 with chemo and radiation and cancer again in 2018 with mets to bone and now new diagnosis of brain tumor., has headpain, shoulder and knee pain., has brain swelling and is having memory impairment and cognitive issues. , lives with her sister - Mary., hx of radiation to shoulder and knee (2019). History of Any Multi-Drug Resistant Organisms: None Reported Past Surgical History: Back Surgery, Joint Replacement, Orthopedic Surgery Additional Past Surgical History / Comment(s): 03-11 lumbar fusion with laminectomy decompression, bilateral TKA, WILIAM with BSO, bilateral carpal tunnel release, Spinal cord stimulator(2011) Past Anesthesia/Blood Transfusion Reactions: No Reported Reaction Past Psychological History: No Psychological Hx Reported Smoking Status: Never smoker Past Alcohol Use History: None Reported Past Drug Use History: None Reported - Past Family History mother Family Medical History: Diabetes Mellitus Medications and Allergies Home Medications Medication Instructions Recorded Confirmed Type Ferrous Sulfate [Iron (65 MG 1 tab PO DAILY 09/08/16 03/12/20 History Elemental)] Metoprolol Tartrate [Lopressor] 50 mg PO BID 09/08/16 03/12/20 History Simvastatin [Zocor] 10 mg PO DAILY 09/08/16 03/12/20 History amLODIPine [Norvasc] 2.5 mg PO DAILY 09/08/16 03/12/20 History Aspirin [Adult Low Dose Aspirin EC] 81 mg PO DAILY 03/12/20 03/12/20 History Allergies Allergy/AdvReac Type Severity Reaction Status Date / Time hydromorphone Allergy Severe Swelling Verified 03/12/20 14:43 nitrofurantoin Allergy Severe Rash/Hives Verified 03/12/20 14:43 [From Macrobid] Sulfa (Sulfonamide Allergy Severe Rash/Hives Verified 03/12/20 14:43 Antibiotics) alpelisib [From Piqray] Allergy Unknown Swelling Verified 03/12/20 15:04 of Throat, Rash Physical Exam Vitals: Intake and Output 09/14/20 09/14/2021 06:59 14:59 22:59 Other: Weight 58.74 kg
[2020-09-14] MEDS: LORazepam 2 MG/ML INJ IV PRN (19:20)
[2020-09-15] MEDS: LORazepam 2 MG/ML INJ IV PRN (00:18)
[2020-09-15] MEDS: MORPHINE SULFATE (100 MG/2 ML) 100 MG in SODIUM CHLORIDE 0.9% 100 ML IV SCH (11:31)
[2020-09-16] MEDS: MORPHINE SULFATE (100 MG/2 ML) 100 MG in SODIUM CHLORIDE 0.9% 100 ML IV SCH ×3 (02:50→23:15)
[2020-09-16] MEDS: ACETAMINOPHEN SUPPOSITORY 650 MG SUPP RECTAL PRN (05:45)
--- NOTE | 2020-09-16 13:17 | P.PN ---
Progress Note - Text Progress Note Date: 09/15/20 Chief Complaint: Agitated behavior History of presenting complaint: This is a 64-year-old patient, who is being admitted under GIP. History is updated with her daughter the bedside. Patient has a known history of breast cancer diagnosed in 2006. 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 Patient's had chemotherapy and right mastectomy. On the stable medical conditions included hypertension, hyperglycemia, hyperlipidemia. Patient did follow with oncologist Dr. Armas. Patient had been under hospice being cared by a family member/sister. Patient now sent in full GIP because of increasing confusion and hallucinations bizarre behavior. Last to 3 days patient has not been able to do much. Barely eating. His last 48 hours this far more confusion and agitation and aggression with the family. Trouble swallowing. On taking oral medications. He had been on morphine ER and IR for pain control and Keppra for seizure precautions. Patient did not sleep for the last 24 hours. The hospital but apart aggressive to his family. As patient be admitted for symptom management. Patient received morphine Patient is also had cognitive impairment. Today: Symptoms better controlled. Occasionally opens eyes. Lethargic. Review of systems: As above Unable to obtain from the patient Past medical history to include: Hypertension, hyperglycemia, hyperlipidemia, breast cancer diagnosed in 2006 with metastatic sister brain bone and lung Social history: Nonsmoker. Nonalcohol. Currently was living with her sister Mary was providing care Family history: Diabetes Physical examination: VITAL SIGNS: Respiration 12 GENERAL: laying in bed, sedated. HEART: First and second heart sounds are normal; no edema. LUNGS: Respiratory rate normal; clear to auscultation. ABDOMEN: Soft, nontender, liver spleen not palpable, no masses palpable. PSYCH: [Unable to assess patient sedated Assessment and plan: -Acute agitated behaviors, from brain metastasis-controlled Morphine drip for symptom control. Titrate -Metastatic breast cancer with metastatic to brain and bone and lungs -Pain control Morphine drip titrate to symptoms Symptoms being monitored. Continue with comfort care sent. No family at the bedside.
--- NOTE | 2020-09-16 17:43 | P.PN ---
Progress Note - Text Progress Note Date: 09/16/20 Chief Complaint: Agitated behavior History of presenting complaint: This is a 64-year-old patient, who is being admitted under GIP. History is updated with her daughter the bedside. Patient has a known history of breast cancer diagnosed in 2006. 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 Patient's had chemotherapy and right mastectomy. On the stable medical conditions included hypertension, hyperglycemia, hyperlipidemia. Patient did follow with oncologist Dr. Armas. Patient had been under hospice being cared by a family member/sister. Patient now sent in full GIP because of increasing confusion and hallucinations bizarre behavior. Last to 3 days patient has not been able to do much. Barely eating. His last 48 hours this far more confusion and agitation and aggression with the family. Trouble swallowing. On taking oral medications. He had been on morphine ER and IR for pain control and Keppra for seizure precautions. Patient did not sleep for the last 24 hours. The hospital but apart aggressive to his family. As patient be admitted for symptom management. Patient received morphine Patient is also had cognitive impairment. Today: Laying in bed. Appears more comfortable. Occasionally opens eyes. Daughter the bedside. Review of systems: As above Unable to obtain from the patient Past medical history to include: Hypertension, hyperglycemia, hyperlipidemia, breast cancer diagnosed in 2006 with metastatic sister brain bone and lung Social history: Nonsmoker. Nonalcohol. Currently was living with her sister Mary was providing care Family history: Diabetes Physical examination: VITAL SIGNS: Respiration 14 GENERAL: laying in bed, sedated. HEART: First and second heart sounds are normal; no edema. LUNGS: Respiratory rate normal; clear to auscultation. ABDOMEN: Soft, nontender, liver spleen not palpable, no masses palpable. PSYCH: [Unable to assess patient sedated Assessment and plan: -Acute agitated behaviors, from brain metastasis-controlled Morphine drip for symptom control. Titrate -Metastatic breast cancer with metastatic to brain and bone and lungs -Pain control Morphine drip titrate to symptoms Spoke to daughter. No questions. Continue with comfort care set
[2020-09-17] MEDS: LORazepam 2 MG/ML INJ IV PRN (03:27)
[2020-09-17] MEDS: MORPHINE SULFATE (100 MG/2 ML) 100 MG in SODIUM CHLORIDE 0.9% 100 ML IV SCH ×3 (07:21→21:41)
[2020-09-17] MEDS: SCOPOLAMINE 1.5MG/72HR PATCH TRANSDERM SCH (09:51)
[2020-09-17] MEDS: ACETAMINOPHEN SUPPOSITORY 650 MG SUPP RECTAL PRN (12:23)
--- NOTE | 2020-09-17 15:53 | P.PN ---
Progress Note - Text Progress Note Date: 09/17/20 Chief Complaint: Agitated behavior History of presenting complaint: This is a 64-year-old patient, who is being admitted under GIP. History is updated with her daughter the bedside. Patient has a known history of breast cancer diagnosed in 2006. 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 Patient's had chemotherapy and right mastectomy. On the stable medical conditions included hypertension, hyperglycemia, hyperlipidemia. Patient did follow with oncologist Dr. Armas. Patient had been under hospice being cared by a family member/sister. Patient now sent in full GIP because of increasing confusion and hallucinations bizarre behavior. Last to 3 days patient has not been able to do much. Barely eating. His last 48 hours this far more confusion and agitation and aggression with the family. Trouble swallowing. On taking oral medications. He had been on morphine ER and IR for pain control and Keppra for seizure precautions. Patient did not sleep for the last 24 hours. The hospital but apart aggressive to his family. As patient be admitted for symptom management. Patient received morphine Patient is also had cognitive impairment. Today: Currently comfortable. Was restless last night. Given Ativan. Sedated. Daughter the bedside. Review of systems: As above Unable to obtain from the patient Past medical history to include: Hypertension, hyperglycemia, hyperlipidemia, breast cancer diagnosed in 2006 with metastatic sister brain bone and lung Social history: Nonsmoker. Nonalcohol. Currently was living with her sister Mary was providing care Family history: Diabetes Physical examination: VITAL SIGNS: Respiration 12 GENERAL: laying in bed, sedated. HEART: First and second heart sounds are normal; no edema. LUNGS: Respiratory rate normal; decreased breath sounds ABDOMEN: Soft, nontender, PSYCH: [Unable to assess patient sedated Assessment and plan: -Acute agitated behaviors, from brain metastasis-controlled Morphine drip for symptom control. Titrate -Anxiety intermittent uncontrolled Ativan when necessary -Metastatic breast cancer with metastatic to brain and bone and lungs -Pain control Morphine drip titrate to symptoms Spoke to daughter. No questions. Continue with comfort care set
[2020-09-18] MEDS: MORPHINE SULFATE (100 MG/2 ML) 100 MG in SODIUM CHLORIDE 0.9% 100 ML IV SCH ×7 (04:46→21:07)
[2020-09-18] MEDS: ACETAMINOPHEN SUPPOSITORY 650 MG SUPP RECTAL PRN ×3 (08:32→21:26)
[2020-09-18] MEDS: ATROPINE OPHTH SOLN 1% 5ML BTL SUBLINGUAL PRN ×2 (11:21→21:27)
[2020-09-18] MEDS: LORazepam 2 MG/ML INJ IV PRN ×2 (11:28→19:49)
--- NOTE | 2020-09-18 14:22 | P.PN ---
Progress Note - Text Progress Note Date: 09/18/20 Chief Complaint: Increased secretions History of presenting complaint: This is a 64-year-old patient, who is being admitted under GIP. History is updated with her daughter the bedside. Patient has a known history of breast cancer diagnosed in 2006. 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 Patient's had chemotherapy and right mastectomy. On the stable medical conditions included hypertension, hyperglycemia, hyperlipidemia. Patient did follow with oncologist Dr. Armas. Patient had been under hospice being cared by a family member/sister. Patient now sent in full GIP because of increasing confusion and hallucinations bizarre behavior. Last to 3 days patient has not been able to do much. Barely eating. His last 48 hours this far more confusion and agitation and aggression with the family. Trouble swallowing. On taking oral medications. He had been on morphine ER and IR for pain control and Keppra for seizure precautions. Patient did not sleep for the last 24 hours. The hospital but apart aggressive to his family. As patient be admitted for symptom management. Patient received morphine Patient is also had cognitive impairment. Today: Patient had increase gurgling from secretions in the chest. Atropine ordered. Otherwise patient appears comfortable Review of systems: As above Unable to obtain from the patient Past medical history to include: Hypertension, hyperglycemia, hyperlipidemia, breast cancer diagnosed in 2006 wit h metastatic sister brain bone and lung Social history: Nonsmoker. Nonalcohol. Currently was living with her sister Mary was providing care Family history: Diabetes Physical examination: VITAL SIGNS: Respiration 10 GENERAL: laying in bed, sedated. Chest congestion HEART: First and second heart sounds are normal; no edema. LUNGS: Respiratory rate increased; decreased breath sounds ABDOMEN: Soft, nontender, PSYCH: [Unable to assess patient sedated Assessment and plan: -Acute agitated behaviors, from brain metastasis-controlled Morphine drip for symptom control. Titrate -Anxiety intermittent uncontrolled Ativan when necessary -Metastatic breast cancer with metastatic to brain and bone and lungs -Pain control Morphine drip titrate to symptoms -Increased respiratory secretions Atropine when necessary Atropine added. Continue with comfort care set
[2020-09-18 15:56] VITALS: BP 124/69; PULSE 134; RESP 22
[2020-09-19] MEDS: MORPHINE SULFATE (100 MG/2 ML) 100 MG in SODIUM CHLORIDE 0.9% 100 ML IV SCH ×10 (00:25→14:04)
[2020-09-19] MEDS: ATROPINE OPHTH SOLN 1% 5ML BTL SUBLINGUAL PRN ×5 (02:52→16:29)
[2020-09-19 07:49] VITALS: TEMP 100.2
[2020-09-19] MEDS ORDERED: SCOPOLAMINE 1.5MG/72HR PATCH TRANSDERM STA (12:13)
[2020-09-19 15:11] VITALS: BMI 22.2
[2020-09-19] MEDS ORDERED: MORPHINE SULFATE (100 MG/2 ML) 500 MG in SODIUM CHLORIDE 0.9% 500 ML 500 ML IV SCH (16:00)
--- NOTE | 2020-09-20 11:01 | P.DS ---
Providers Date of admission: 09/14/20 13:10 Expected date of discharge: 09/19/20 (Patient ) Attending physician: Valentín Alonzo Primary care physician: Stated None Hospital Course: Chief Complaint: Increased secretions History of presenting complaint: This is a 64-year-old patient, who is being admitted under GIP. History is updated with her daughter the bedside. Patient has a known history of breast c ancer diagnosed in 2006. 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 Patient's had chemotherapy and right mastectomy. On the stable medical conditions included hypertension, hyperglycemia, hyperlipidemia. Patient did follow with oncologist Dr. Armas. Patient had been under hospice being cared by a family member/sister. Patient now sent in full GIP because of increasing confusion and hallucinations bizarre behavior. Last to 3 days patient has not been able to do much. Barely eating. His last 48 hours this far more confusion and agitation and aggression with the family. Trouble swallowing. On taking oral medications. He had been on morphine ER and IR for pain control and Keppra for seizure precautions. Patient did not sleep for the last 24 hours. The hospital but apart aggressive to his family. As patient be admitted for symptom management. Patient received morphine Patient is also had cognitive impairment. Comfort Care second pause use. Family was with the patient most of the time. Today: Having increased secretions early in the day. Atropine being used. Daughter at the bedside. Later in the day patient succumbed to underlying condition. Past medical history to include: Hypertension, hyperglycemia, hyperlipidemia, breast cancer diagnosed in 2006 with metastatic sister brain bone and lung Social history: Nonsmoker. Nonalcohol. Currently was living with her sister Mary was providing care Family history: Diabetes Physical examination: VITAL SIGNS: Respiration 12 GENERAL: laying in bed, sedated. Chest congestion HEART: First and second heart sounds are normal; no edema. LUNGS: Respiratory rate increased; decreased breath sounds ABDOMEN: Soft, nontender, PSYCH: [Unable to assess patient sedated Cause of : Metastatic breast cancer Assessment -Acute agitated behaviors, from brain metastasis-controlled -Anxiety intermittent uncontrolled -Metastatic breast cancer with metastatic to brain and bone and lungs -Pain control Morphine drip -Increased respiratory secretions Disposition: Patient Plan - Discharge Summary New Discharge Prescriptions: No Action amLODIPine [Norvasc] 2.5 mg PO DAILY Simvastatin [Zocor] 10 mg PO DAILY Metoprolol Tartrate [Lopressor] 50 mg PO BID Ferrous Sulfate [Iron (65 MG Elemental)] 1 tab PO DAILY Aspirin [Adult Low Dose Aspirin EC] 81 mg PO DAILY Discharge Medication List Ferrous Sulfate [Iron (65 MG Elemental)] 1 tab PO DAILY 09/08/16 [History] Metoprolol Tartrate [Lopressor] 50 mg PO BID 09/08/16 [History] Simvastatin [Zocor] 10 mg PO DAILY 09/08/16 [History] amLODIPine [Norvasc] 2.5 mg PO DAILY 09/08/16 [History] Aspirin [Adult Low Dose Aspirin EC] 81 mg PO DAILY 03/12/20 [History] Discharge Disposition: - Preliminary Cause of Preliminary Cause of : Metastatic breast cancer
== END 2020-09-19 18:17 | disposition expired | DRG 951 ==
LOC: 4SSUR 13:10
PROVIDERS: ADMIT Hospitalist; ATTEND Hospitalist
DX: Z51.5 Encounter for palliative care (principal); C79.31 Secondary malignant neoplasm of brain; C79.51 Secondary malignant neoplasm of bone; C78.00 Secondary malignant neoplasm of unspecified lung; E11.65 Type 2 diabetes mellitus with hyperglycemia; R13.10 Dysphagia, unspecified; F28 Other psychotic disorder not due to a substance or known physiological condition; G31.84 Mild cognitive impairment of uncertain or unknown etiology; E78.5 Hyperlipidemia, unspecified; F41.9 Anxiety disorder, unspecified; G93.0 Cerebral cysts; I10 Essential (primary) hypertension; J45.909 Unspecified asthma, uncomplicated; Z20.822 Contact with and (suspected) exposure to COVID-19; Z79.82 Long term (current) use of aspirin; Z79.899 Other long term (current) drug therapy; Z85.3 Personal history of malignant neoplasm of breast; Z90.11 Acquired absence of right breast and nipple; Z92.3 Personal history of irradiation; Z96.653 Presence of artificial knee joint, bilateral; Z90.710 Acquired absence of both cervix and uterus; Z98.1 Arthrodesis status; Z88.5 Allergy status to narcotic agent; Z88.2 Allergy status to sulfonamides; Z88.8 Allergy status to other drugs, medicaments and biological substances; Z96.82 Presence of neurostimulator; Z92.21 Personal history of antineoplastic chemotherapy